=== PATIENT | male | born 1995 | race Caucasian/White ===

== ENCOUNTER 2016-11-25 23:08 | Emergency (ER) | payer MEDICAID ==
[~2016-11-25] VITALS: Ht 162.6 cm; Wt 79.4 kg
[2016-11-25 23:15] VITALS: BP 127/67
--- NOTE | 2016-11-26 00:24 | NUR ---
TO ER BED 3
--- NOTE | 2016-11-26 00:39 | NUR ---
CAME IN WITH C/O PAIN AND NUMBNESS OF HIS RT 2ND AND 3RD FINGER FOR 2 DAYS.NO TRAUMA NOR INJURY NOTED.
--- NOTE | 2016-11-26 00:49 | NUR ---
Patient being evaluated by physician at bedside.
[2016-11-26 00:55] VITALS: BP 118/71
--- NOTE | 2016-11-26 01:08 | NUR ---
Patient discharged with v/s stable. Written and verbal after care instructions given and explained. Patient alert, oriented and verbalized understanding of instructions. Ambulatory with steady gait. All questions addressed prior to discharge. ID band removed. Patient advised to follow up with PMD. Rx of JARRED given. Patient educated on indication of medication including possible reaction and side effects. Opportunity to ask questions provided and answered.
== END 2016-11-26 01:08 | disposition home or self-care (01) ==
LOC: MED 23:08
DX: M79.644 Pain in right finger(s) (principal); M79.89 Other specified soft tissue disorders
CPT/HCPCS: 99283